=== PATIENT | female | born 1935 | race Caucasian/White ===

== ENCOUNTER 2018-06-06 12:51 | Emergency (ER) | payer MEDICARE, MEDICAID ==
[~2018-06-06] VITALS: Ht 157.5 cm; Wt 62.6 kg
[2018-06-06] MEDS ORDERED: XARELTO20 MG PO ×2 (13:10→17:44)
[2018-06-06] MEDS ORDERED: LIPITOR40 MG PO (13:10)
[2018-06-06] MEDS ORDERED: CALCIUM600 MG PO (13:11)
[2018-06-06] MEDS ORDERED: PROAIR RESPICL90 MCG (13:11)
[2018-06-06] MEDS ORDERED: CARTIA XT240 MG PO (13:12)
[2018-06-06] MEDS ORDERED: VITAMIN D31000 UNI2 PO (13:12)
[2018-06-06] MEDS ORDERED: DOK100 MG PO (13:13)
[2018-06-06] MEDS ORDERED: B-121000 MC2 PO (13:13)
[2018-06-06] MEDS ORDERED: PEPCID40 MG PO (13:14)
[2018-06-06] MEDS ORDERED: FERROUS SU220 MG/52 PO (13:14)
[2018-06-06] MEDS ORDERED: DIALYVITE 800800 MCG PO (13:15)
[2018-06-06] MEDS ORDERED: GABAPENTIN300 MG PO (13:15)
[2018-06-06] MEDS ORDERED: LISINOPRIL20 MG PO (13:15)
[2018-06-06] MEDS ORDERED: MULTI VITAMIN1 EACH PO (13:16)
[2018-06-06] MEDS ORDERED: MAGNESIUM400 MG PO (13:16)
[2018-06-06] MEDS ORDERED: PERCOCET 5-3251 EACH PO (13:16)
[2018-06-06] MEDS ORDERED: MIRALAX17 GM PO (13:17)
--- NOTE | 2018-06-06 22:36 | EKG ---
[facility] [address] [facility] [place], [place] [address] Signed Sinus rhythm with 1st degree AV block with premature atrial complexes with aberrant conduction Left axis deviation Inferior infarct , age undetermined Abnormal ECG No previous ECGs available Confirmed by ADRYAN TAMAYO MD ([id number] on 06/06/2018 10:36:44 PM Electronically Signed By: ADRYAN TAMAYO MD 06/06/18 2236 PATIENT NAME: ZORAIDA MEADOWS Electrocardiogram DATE OF : 31 PHYSICIAN: ADRYAN TAMAYO MD REPORT #: [id number] REPORT IS CONFIDENTIAL AND NOT TO BE RELEASED WITHOUT AUTHORIZATION
== END 2018-06-06 18:15 | disposition home or self-care (01) ==
LOC: ED 12:51
DX: R06.00 Dyspnea, unspecified (principal); I48.91 Unspecified atrial fibrillation; I10 Essential (primary) hypertension; K21.9 Gastro-esophageal reflux disease without esophagitis; Z86.73 Personal history of transient ischemic attack (TIA), and cerebral infarction without residual deficits; Z87.891 Personal history of nicotine dependence; Z90.49 Acquired absence of other specified parts of digestive tract; Z88.1 Allergy status to other antibiotic agents; Z88.8 Allergy status to other drugs, medicaments and biological substances; Z79.899 Other long term (current) drug therapy
CPT/HCPCS: 71045; 80053; 84484; 85025; 85379; 93005; 93010; 99285-25

== ENCOUNTER 2018-06-09 14:51 | Emergency (ER) | payer MEDICARE ==
[~2018-06-09] VITALS: Ht 157.5 cm; Wt 62.6 kg
[~2018-06-09 14:51] MED LIST: B-121000 MC2 PO; CALCIUM600 MG PO; CARTIA XT240 MG PO; DIALYVITE 800800 MCG PO; DOK100 MG PO; FERROUS SU220 MG/52 PO; GABAPENTIN300 MG PO; LIPITOR40 MG PO; LISINOPRIL20 MG PO; MAGNESIUM400 MG PO; MIRALAX17 GM PO; MULTI VITAMIN1 EACH PO; PEPCID40 MG PO; PERCOCET 5-3251 EACH PO; PROAIR RESPICL90 MCG; VITAMIN D31000 UNI2 PO; XARELTO20 MG PO
--- OUTSIDE RECORDS SUMMARY | 2018-06-09 14:56 | XMS ---
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 David has no Care Guidelines for this patient. [place] [facility] MO.) [facility] NOTE: Visits indicate total known visits. ED/UCC VISIT TRACKING (12 MO.) [facility] COMPLAINT: - L ARM/HIP PAIN,INJURY 06/06/2018 12:[address] [facility] TYPE: Emergency COMPLAINT: - IRREGULAR HEARTBEAT DIAGNOSES: - Acquired absence of other specified parts of digestive tract - Personal history of nicotine dependence - Allergy status to other drugs, medicaments and biological substances status - Unspecified atrial fibrillation - Personal history of transient ischemic attack (TIA), and cerebral infarction without residual deficits - Allergy status to other antibiotic agents status - Other long term care social worker (current) drug therapy - Essential (primary) hypertension - Weakness - Dyspnea, unspecified - Gastro-esophageal reflux disease without esophagitis INPATIENT VISIT TRACKING (12 MO.) No inpatient visits to display in this time frame [email or web address]
[2018-06-09] MEDS ORDERED: KEFLEX500 MG PO (16:12)
== END 2018-06-09 16:20 | disposition home or self-care (01) ==
LOC: ED 14:51
DX: S80.12XA Contusion of left lower leg, initial encounter (principal); L08.9 Local infection of the skin and subcutaneous tissue, unspecified; I10 Essential (primary) hypertension; I48.91 Unspecified atrial fibrillation; K21.9 Gastro-esophageal reflux disease without esophagitis; Z86.73 Personal history of transient ischemic attack (TIA), and cerebral infarction without residual deficits; Z99.81 Dependence on supplemental oxygen; Z90.49 Acquired absence of other specified parts of digestive tract; Z90.710 Acquired absence of both cervix and uterus; Z88.1 Allergy status to other antibiotic agents; Z88.8 Allergy status to other drugs, medicaments and biological substances; Z79.899 Other long term (current) drug therapy; W19.XXXA Unspecified fall, initial encounter
CPT/HCPCS: 73502; 76882; 99284-25

== ENCOUNTER 2018-06-11 19:28 | Emergency (ER) | payer MEDICARE ==
[~2018-06-11] VITALS: Ht 157.5 cm; Wt 62.6 kg
[~2018-06-11 19:28] MED LIST changes: +KEFLEX500 MG PO
--- OUTSIDE RECORDS SUMMARY | 2018-06-11 19:32 | XMS ---
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 David has no Care Guidelines for this patient. [place] VISIT COUNT (12 MO.) [address] [facility] TOTAL 3 NOTE: Visits indicate total known visits. ED/UCC VISIT TRACKING (12 MO.) 06/11/2018 19:[address] [facility] TYPE: Emergency COMPLAINT: - POSS MEDICATION REACTION/SOB/RASH 06/09/2018 14:52 [facility] TYPE: Emergency COMPLAINT: - L ARM/HIP PAIN,INJURY 06/06/2018 12:52 [facility] TYPE: Emergency COMPLAINT: - IRREGULAR HEARTBEAT DIAGNOSES: - Acquired absence of other specified parts of digestive tract - Personal history of nicotine dependence - Allergy status to other drugs, medicaments and biological substances status - Unspecified atrial fibrillation - Personal history of transient ischemic attack (TIA), and cerebral infarction without residual deficits - Allergy status to other antibiotic agents status - 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
[2018-06-11] MEDS ORDERED: ZESTRIL20 MG PO (21:39)
[2018-06-11] MEDS ORDERED: CARTIA XT240 MG PO (21:39)
[2018-06-11] MEDS ORDERED: LIPITOR40 MG PO (21:39)
[2018-06-11] MEDS ORDERED: CLINDAMYCIN HC300 MG PO (21:39)
== END 2018-06-11 22:05 | disposition home or self-care (01) ==
LOC: ED 19:28
DX: L29.9 Pruritus, unspecified (principal); T36.1X5A Adverse effect of cephalosporins and other beta-lactam antibiotics, initial encounter; L03.116 Cellulitis of left lower limb; Z76.0 Encounter for issue of repeat prescription; I48.91 Unspecified atrial fibrillation; I10 Essential (primary) hypertension; K21.9 Gastro-esophageal reflux disease without esophagitis; Z99.81 Dependence on supplemental oxygen; Z86.73 Personal history of transient ischemic attack (TIA), and cerebral infarction without residual deficits; Z87.891 Personal history of nicotine dependence; Z90.710 Acquired absence of both cervix and uterus; Z90.49 Acquired absence of other specified parts of digestive tract; Z88.1 Allergy status to other antibiotic agents; Z88.8 Allergy status to other drugs, medicaments and biological substances; Z79.899 Other long term (current) drug therapy
CPT/HCPCS: 99283